=== PATIENT | female | born 1990 | race Caucasian/White ===

== ENCOUNTER → 2020-08-05 | Outpatient (REF) | payer OTHER ==
[~2020-08-05] MED LIST: IBUP600T26 PO; MAPA500T17 PO; MILK10SU PO
== END ==
LOC: M PLALAB 13:02
PROVIDERS: ATTEND Advanced Practice Midwife
DX: Z34.91 Encounter for supervision of normal pregnancy, unspecified, first trimester (principal); Z3A.00 Weeks of gestation of pregnancy not specified; Z53.9 Procedure and treatment not carried out, unspecified reason

== ENCOUNTER → 2020-09-16 | Outpatient (CLI) | payer OTHER | LOC: M WHC 10:09 | PROVIDERS: ATTEND Advanced Practice Midwife | DX: Z34.92 Encounter for supervision of normal pregnancy, unspecified, second trimester (principal) ==

== ENCOUNTER → 2020-11-06 | Outpatient (REF) | payer OTHER ==
[2020-11-06 17:35] LABS: HEMATOCRIT 37.1 % (36.0-47.0); HEMOGLOBIN 12.1 g/dl (12.0-15.5); MEAN CORPUSCULAR HEMOGLOBIN 29.4 pg (27.0-33.0); MEAN CORPUSCULAR HGB CONC 32.6 g/dl (32.0-36.5); PLATELET COUNT, AUTOMATED 441 10^3/uL (150-450); RED BLOOD COUNT 4.12 10^6/uL (4.00-5.40); WHITE BLOOD COUNT 16.6 10^3/uL (4.0-10.0)
== END ==
LOC: M PLALAB 14:04
PROVIDERS: ATTEND Specialist
DX: Z34.82 Encounter for supervision of other normal pregnancy, second trimester (principal)

== ENCOUNTER → 2020-11-12 | Outpatient (CLI) | payer OTHER | LOC: M WHC 13:52 | PROVIDERS: ATTEND Obstetrics & Gynecology | DX: Z34.92 Encounter for supervision of normal pregnancy, unspecified, second trimester (principal); Z3A.27 27 weeks gestation of pregnancy; Z53.9 Procedure and treatment not carried out, unspecified reason ==

== ENCOUNTER → 2020-11-19 | Outpatient (CLI) | payer OTHER ==
--- NOTE | 2020-11-19 16:12 | REP ---
INDICATION: 28 WEEK GESTATION,GROWTH COMPARISON: None. TECHNIQUE: Transabdominal obstetrical ultrasound with color Doppler evaluation. FINDINGS: Examination demonstrates a single live intrauterine in breech presentation. motion is identified by technologist. Placenta is noted anterior and grade 1 without evidence for placenta previa or abruption. Amniotic fluid volume is normal. Cervix measures 3.8 cm in length and appears closed.. Gestational age by EDC 28 weeks 2 days with KIRBY 02/09/2021. Gestational age by current measurements 28 weeks 2 days with KIRBY 02/10/2020. FHR equals 156 beats per minute. Amniotic fluid index: 14.8 cm (9.3-22.9) BPD: 7.3 cm at 29 weeks 1 day HC: 26.6 cm at 28 weeks 6 days AC: 23.2 cm at 27 weeks 4 days FL: 5.2 cm at 27 weeks 5 days HL: 4.8 cm at 28 weeks 2 days HC/AC: 1.15 Estimated weight 1132 grams (22ndpercentile). Umbilical artery 1 SD ratio: 3.18 (2.07-4.32) Umbilical artery 2 SD ratio: 3.39 (2.07-4.32) IMPRESSION: Single live intrauterine in breech presentation demonstrating appropriate estimated weight and growth. <Electronically signed by Ariel Owens > 11/19/20 2027
== END ==
LOC: M WHC 14:40
PROVIDERS: ATTEND Obstetrics & Gynecology
DX: Z36.89 Encounter for other specified antenatal screening (principal); Z3A.28 28 weeks gestation of pregnancy

== ENCOUNTER → 2020-12-17 | Outpatient (CLI) | payer OTHER ==
--- NOTE | 2020-12-18 06:15 | REP ---
INDICATION: GROWTH COMPARISON: 11/19/2020 TECHNIQUE: Transabdominal obstetrical ultrasound with color Doppler evaluation. FINDINGS: Examination demonstrates a single live intrauterine in cephalic presentation. motion is identified by technologist. Placenta is noted anterior and grade 2 without evidence for placenta previa or abruption. Amniotic fluid volume is normal. Cervix measures 2.9 cm in length and appears closed.. Gestational age by LMP and 1st U/S 32 weeks 2 days with KIRBY 02/09/2021. Gestational age by current measurements 31 weeks 4 days with KIRBY 02/14/2021. FHR equals 165 beats per minute. Estimated weight 1721 grams (13thpercentile). DENTON: 10.9 cm (8.5-24.3) IMPRESSION: Single live intrauterine in cephalic presentation demonstrating appropriate estimated weight. <Electronically signed by Ariel Owens > 12/18/20 0611
== END ==
LOC: M WHC 14:14
PROVIDERS: ATTEND Obstetrics & Gynecology
DX: Z34.93 Encounter for supervision of normal pregnancy, unspecified, third trimester (principal); Z3A.32 32 weeks gestation of pregnancy

== ENCOUNTER → 2021-01-21 | Outpatient (REF) | payer OTHER ==
[~2021-01-21] MED LIST changes: +IBUP-1114 PO; +MACR100C43 PO; +MAPA500T2 PO; +METO1TAB87 PO; +OXYC1TAB23 PO; +PRENTAB9 PO; +PROM12.56 PO; +REGL5TAB2 PO
== END ==
LOC: M SFHCWAGY 12:42 → M LAB REF 12:42
PROVIDERS: ATTEND Advanced Practice Midwife
DX: Z36.85 Encounter for antenatal screening for Streptococcus B (principal); Z3A.37 37 weeks gestation of pregnancy

== ENCOUNTER → 2021-01-28 | Outpatient (CLI) | payer OTHER ==
[~2021-01-28] MED LIST changes: +HYDR26CR PR; +TUMS750C5 PO
== END ==
LOC: M LABSMTC 10:01
PROVIDERS: ATTEND Specialist
DX: Z11.52 Encounter for screening for COVID-19 (principal)

== ENCOUNTER 2021-01-29 12:15 | Inpatient (IN) | payer OTHER ==
[2021-01-29] VITALS (18 sets, daily range): BP systolic 122–179; BP diastolic 65–100
[~2021-01-29] VITALS: Ht 165.1 cm; Wt 65.1 kg
[~2021-01-29 12:15] MED LIST changes: -HYDR26CR PR; -TUMS750C5 PO
[2021-01-29] MEDS ORDERED: PRENTAB9 PO (12:50)
[2021-01-29] MEDS ORDERED: TUMS750C5 PO (12:51)
[2021-01-29] MEDS ORDERED: HYDR26CR PR (12:54)
[2021-01-29] MEDS: miSOPROStol 50MCG 1/2 TABLET PO SCH ×2 (13:46→17:48)
--- NOTE | 2021-01-29 13:49 | HPEPDOC ---
Obstetrical History & Physical General Date of Admission January 29, 2021 at 12:15 History of Present Illness 30-year-old 3 para 2 presents at 38 weeks 3 days estimated gestational a ge by LMP confirmed for shortness ultrasound presents for induction of labor secondary to oligohydramnios and intrauterine growth restriction. Patient had a growth ultrasound today demonstrated a fetus at 2400 g less than 3rd percentile with amniotic fluid index of 3 cm. Her is unremarkable for two-vessel cord. She's been followed with serial growth ultrasounds. Chief Complaint: Induction of labor Information Provided By: Patient Age: 30 : 3 Term: 2 Livin Care Care: Good Care Dating Final EDC: February 09, 2021 Final EDC by: LMP EGA at Admission: 38 Past Medical History Past Obstetrical History : Date of Delivery: Jul 23, 2013 Gestation: 37 Type of Delivery: Spontaneous Vaginal Del. 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 Past Medical History Surgical History: Denies/None Family History Significant Family History: No pertinent family hx Social History Marital Status: Family situation: Spouse/partner home Psychosocial History: No pertinent psych hx * Smoker: non-smoker Alcohol: Denies Drugs: denies Allergies Coded Allergies: No Known Allergies (Unverified , 07/22/13) Medications Scheduled Metoprolol Tartrate (Metoprolol Tartrate) 25 Mg Tablet, 1 TAB PO DAILY No.137/Iron/Folic Acd ( Vitamin Tablet) 1 Each Tablet, 1 TAB PO DAILY Scheduled PRN Acetaminophen (Tylenol) 500 Mg Tab, 1,000 MG PO Q8HP PRN for PAIN Calcium Carbonate (Tums) 300 Mg Tab.chew, 1-2 TAB PO Q6HP PRN for INDIGESTION Hydrocortisone (Preparation H) 26 Gm Cream..g., 1 % PA Q6HP PRN for ITCHING Metoclopramide Hcl (Reglan) 5 Mg Tablet, 1 TAB PO Q8HP PRN for NAUSEA 1 hour prior to procedure Promethazine HCl (Promethazine HCl) 12.5 Mg Tablet, 12.5 MG PO Q6-8HP PRN for motion sickness Physical Examination Physical Examination GENERAL: Alert and oriented times three. BREAST: . ABDOMEN: Gravid and non-tender to touch. FETUS: Is vertex (VTX) by sterile vaginal examination (SVE), fetus is vertex (VTX) by Mark. HEART RATE: Regular rate and rhythm. LUNGS: Clear to auscultation (CTA). Vital Signs/I&O Vital Signs Date Time Temp Pulse Resp B/P (MAP) Pulse Ox O2 Delivery O2 Flow Rate FiO2 01/29/21 12:55 98.5 01/29/21 12:33 107 179/82 (114) 01/29/21 12:32 20 100 Room Air Laboratory Data 24H LABS Laboratory Tests 2 01/29/21 12:38: Serology Scanned Report Hepatitis B Testing Pertinent Laboratoy Data Blood Type: A+ RBC Antibody Screen: Negative HIV: Negative Hepatitis B: Negative Hepatitis C: Negative Rapid Plasma Reagin: Nonreactive Rubella: Immune Chlamydia/Gonorrhea: Negative Group B Streptococcus: Negative Glucose Tolerance Test: 109 Anatomy Ultrasound Placenta Location: Anterior Vaginal Examination Dilation: 1cm Effacement: 50% Station: -3 Cervical Position: Middle Presentation: Cephalic presentation Assessment Variability: Moderate Accelerations: Present Tocometer Frequency: irregular Assessment/Plan Assessment 30-year-old 3 para 2 at 38 weeks 3 days estimated gestational age with oligohydramnios and intrauterine growth restriction less than 3rd percentile Two-vessel umbilical cord cord Reassuring status Plan Admit and orient. 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 Diet: Regular. Group B Streptococcus (GBS) negative. Labs and intravenous (IV) per unit protocol. Counseled on Pitocin and induction of labor (IOL). Anticipate normal spontaneous delivery (). C-S as appropriate. Labor and Delivery Counseling Patient has been thoroughly counseled in regards to induction labor. I've discussed medications as well as procedures performed in labor and delivery. She has been verbally consented for emergency surgery blood products anesthesia and desires to proceed with induction. Plans to initiate her induction labor with 50 g oral misoprostol. JOSÉ LUIS MOODY MD. January 29, 2021 13:49
[2021-01-29 13:59] LABS: HEMATOCRIT 35.3 % (36.0-47.0); HEMOGLOBIN 11.7 g/dl (12.0-15.5); MEAN CORPUSCULAR HEMOGLOBIN 28.3 pg (27.0-33.0); MEAN CORPUSCULAR HGB CONC 33.1 g/dl (32.0-36.5); MEAN CORPUSCULAR VOLUME 85.5 fl (80.0-96.0); PLATELET COUNT, AUTOMATED 391 10^3/uL (150-450); RED BLOOD COUNT 4.13 10^6/uL (4.00-5.40); WHITE BLOOD COUNT 12.1 10^3/uL (4.0-10.0)
[2021-01-29 15:01] LABS: TOTAL PROTEIN,RANDOM URINE 32.1 MG/DL (0.0-12.0)
[2021-01-29 15:03] LABS: ALT/SGPT 12 U/L (12-78); BILIRUBIN,TOTAL 0.3 MG/DL (0.2-1.0); CREATININE FOR GFR 0.62 MG/DL (0.55-1.30); GLOMERULAR FILTRATION RATE > 60.0 (>60); LDH LACTATE DEHYDROGENASE 178 U/L (84-246); URIC ACID 4.1 MG/DL (2.6-6.0)
[2021-01-29] MEDS ORDERED: OXYTOCIN 30 UNITS IN 0.9% NaCl 500ML IV BAG (J2590) As Ordered ONE (20:32)
[2021-01-29] MEDS ORDERED: OXYTOCIN DRIP 30 UNITS in IV 1 EA IV SCH (21:25)
[2021-01-29] MEDS ORDERED: DIBUCAINE 1% OINTMENT 30GM TOP PRN (21:25)
[2021-01-29] MEDS ORDERED: METHYLERGONOVINE MALEATE 0.2 MG TAB PO PRN (21:25)
[2021-01-29] MEDS ORDERED: ACETAMINOPHEN TAB 650MG DOSE (2X325MG) PO PRN (21:25)
[2021-01-29] MEDS ORDERED: RHOGAM 300 MCG (1500 IU) INJ (J2790) IM SCH (21:25)
[2021-01-29] MEDS ORDERED: MEASLES,MUMPS,RUBELLA VACCINE INJ (MMR-II) (90707) SC SCH (21:25)
[2021-01-29] MEDS ORDERED: ANUSOL HC CREAM 30GM TOP PRN (21:25)
[2021-01-29] MEDS ORDERED: IBUPROFEN 600MG TAB PO PRN (21:25)
[2021-01-29] MEDS ORDERED: MOM 30ML SUSPENSION UDC PO PRN (21:25)
[2021-01-29] MEDS ORDERED: DOCUSATE SODIUM 100MG CAPSULE PO PRN (21:25)
--- NOTE | 2021-01-29 21:26 | DNPDOC ---
[facility] Delivery Note Delivery Note DATE OF DELIVERY: 01/29/2021 TIME OF : 2056 GENDER: Female APGARS: 8 and 9 WEIGHT: 2540 g or 5 lbs. 10 oz. LACERATIONS: none ANESTHESIA: none ESTIMATED BLOOD LOSS: 200 ml COUNTS: 5 laparotomy sponges accounted for prior to after delivery. DELIVERY NOTE: On 01/29/2021 at 2056 Mrs. Mann is a 22-year-old 3 para 3 had a spontaneous vaginal delivery of a liveborn female infant Apgars 8 and 9 weight was 2540 g 5 lbs. 10 oz. Head was delivered occiput anterior (OA), followed by delivery of the shoulders and corpus. Infant was handed to mom with a good cry. Cord was clamped times two and was cut by support person under my direction. Placenta was then drained and delivered grossly intact. A premixed bag of 500 mL of normal saline with 30 units of Pitocin was then bolused along with uterine massage until the uterus was firm. On inspection, cervix, vagina, perineum was grossly intact and hemostatic. Mom and baby in recovery on stable condition. The couples decided to name the daughter Milly. JOSÉ LUIS MOODY MD. January 29, 2021 21:26
[2021-01-29] MEDS: IBUPROFEN 800 MG TAB PO PRN (21:33)
[2021-01-30] MEDS: ACETAMINOPHEN 500 MG TAB PO PRN ×3 (01:00→16:42)
[2021-01-30 06:00] VITALS: BP 132/80
[2021-01-30] MEDS: PRENATAL VITAMINS CHEWABLE TABLET PO SCH (07:30)
--- NOTE | 2021-01-30 07:45 | IPNPDOC ---
Progress Note Date of Service: January 30, 2021 Day#: 1 Progress Note SUBJECT: Doing well without complaints. Ambulating, voiding and pain is well- controlled. Reports minimal lochia. OBJECTIVE: VITAL SIGNS: Within normal limits, afebrile. Alert and oriented times three. Abdomen: Fundus firm at U-2. Soft, NTTP. Ext: neg calf tenderness. ASSESSMENT: day #1 status post . Recovering in stable condition. PLAN: 1. Continue routine care 2. Discharge plans for tomorrow VS, I&O, 24H, Fishbone Vital Signs/I&O Vital Signs Date Time Temp Pulse Resp B/P (MAP) Pulse Ox O2 Delivery O2 Flow Rate FiO2 01/30/21 06:00 99.4 89 18 132/80 (97) 99 Room Air I&O- Last 24 Hours up to 6 AM 01/30/21 06:00 Intake Total 840 ml Output Total 900 ml Balance -60 ml Laboratory Data 24H LABS Laboratory Tests 2 01/29/21 12:38: Serology Scanned Report Hepatitis B Testing 01/29/21 13:42: Nucleated Red Blood Cells % (auto) 0.0, Glomerular Filtration Rate > 60.0, Uric Acid 4.1, Total Bilirubin 0.3, Aspartate Amino Transf (AST/SGOT) 15, Alanine Aminotransferase (ALT/SGPT) 12, Lactate Dehydrogenase 178, Syphilis Serology NONREACTIVE 01/29/21 13:54: Urine Random Creatinine 182.0, Urine Random Total Protein 32.1H CBC/BMP Laboratory Tests 01/29/21 13:42 JOSÉ LUIS MOODY MD. January 30, 2021 07:45
[2021-01-30] MEDS: IBUPROFEN 800 MG TAB PO PRN ×2 (12:44→20:18)
[2021-01-30 18:00] VITALS: BP 122/83
[2021-01-31 06:23] VITALS: BP 114/78
[2021-01-31] MEDS: ACETAMINOPHEN 500 MG TAB PO PRN (06:26)
[2021-01-31] MEDS: PRENATAL VITAMINS CHEWABLE TABLET PO SCH (09:15)
== END 2021-01-31 10:55 | disposition home or self-care (01) | DRG 560 ==
LOC: M LDI 12:15 → M OBS 23:00
PROVIDERS: ADMIT Obstetrics & Gynecology; ATTEND Obstetrics & Gynecology
PROC: 10E0XZZ Delivery of Products of Conception, External Approach (ICD-10-PCS; principal; 2021-01-29)
PROC: 3E0P7GC Introduction of Other Therapeutic Substance into Female Reproductive, Via Natural or Artificial Opening (ICD-10-PCS; 2021-01-29)
DX: O41.03X0 Oligohydramnios, third trimester, not applicable or unspecified (principal); Z3A.38 38 weeks gestation of pregnancy; Z37.0 Single live birth; O36.5930 Maternal care for other known or suspected poor fetal growth, third trimester, not applicable or unspecified; O36.8930 Maternal care for other specified fetal problems, third trimester, not applicable or unspecified; O69.89X0 Labor and delivery complicated by other cord complications, not applicable or unspecified

== ENCOUNTER → 2021-01-29 | Outpatient (CLI) | payer OTHER ==
--- NOTE | 2021-01-29 12:39 | REP ---
INDICATION: 2 CORD/GROWTH/DENTON. COMPARISON: 01/08/2021. TECHNIQUE: Real-time sonographic evaluation of the gravid uterus performed. FINDINGS: Estimated gestational age is38 weeks 3 days, EDC 02/09/2021. Today's measurements indicate less than expected growth. Presentation: Cephalic Placenta anterior, grade 2, without evidence of placenta previa. heart rate is recorded at 147 beats per minute. Amniotic fluid is subjectively oligohydramnios. DENTON 3.0, normal range 7.3-23.3.. Closed cervical length is measured at 3.1 cm. Biometry chart: BPD: 89 mm, 36 weeks 0 days, 17th percentile. HC: 324 mm, 36 weeks 4 days, 20th percentile AC: 303 mm, 34 weeks 1 days, less than 5th percentile Femur length: 67 mm, 34 weeks 3 days, less than 5th percentile HC to AC ratio: 1.07, normal range 0.90-1.09. Estimated weight: 2496g, less than 3rd percentile. IMPRESSION: Viable single intrauterine gestation as above. Suboptimal growth. Oligohydramnios. <Electronically signed by Ezra Kent > 01/29/21 3348
== END ==
LOC: M WHC 11:27
PROVIDERS: ATTEND Advanced Practice Midwife
DX: O43.103 Malformation of placenta, unspecified, third trimester (principal)

== ENCOUNTER → 2021-06-24 | Outpatient (REF) | payer OTHER ==
[~2021-06-24] MED LIST changes: +HYDR26CR PR; +TUMS750C5 PO
== END ==
LOC: M SFHCWAGY 14:00
PROVIDERS: ATTEND Obstetrics & Gynecology
DX: Z12.4 Encounter for screening for malignant neoplasm of cervix (principal); Z01.419 Encounter for gynecological examination (general) (routine) without abnormal findings; Z77.9 Other contact with and (suspected) exposures hazardous to health

== ENCOUNTER → 2021-09-10 | Outpatient (REF) | payer OTHER ==
[2021-09-10 16:59] LABS: APPEARANCE, URINE CLOUDY (CLEAR); BACTERIA, URINE AUTO NEGATIVE (NEGATIVE); BILIRUBIN, URINE AUTO NEGATIVE (NEGATIVE); BLOOD, URINE BLOOD 3+ (NEGATIVE); COLOR, URINE YELLOW (YELLOW); GLUCOSE, URINE (UA) AUTO NEGATIVE (NEGATIVE); KETONE, URINE AUTO NEGATIVE (NEGATIVE); LEUKOCYTE ESTERASE, URINE AUTO 3+ (NEGATIVE); MUCUS, URINE SMALL (NEGATIVE); NITRITE, URINE AUTO POSITIVE (NEGATIVE); PROTEIN, URINE AUTO 2+ mg/dL (NEGATIVE); RBC, URINE AUTO TNTC /HPF (0-3); SPECIFIC GRAVITY URINE AUTO 1.023 (1.002-1.035); SQUAMOUS EPITHELIAL CELL UR AU 6 /HPF (0-6); UROBILINOGEN, URINE AUTO 0.2 mg/dL (0.0-2.0); WBC, URINE AUTO TNTC /HPF (0-3)
== END ==
LOC: M LAB REF 16:24
PROVIDERS: ATTEND Physician Assistant
DX: N39.0 Urinary tract infection, site not specified (principal)

== ENCOUNTER → 2023-04-25 | Outpatient (CLI) | payer MEDICAID ==
[2023-04-25 09:55] LABS: BASO # 0.1 10^3/uL (0.0-0.2); BASO % 1.4 % (0.0-1.0); EOS # 0.4 10^3/uL (0.0-0.5); EOS % 4.8 % (0.0-3.0); HEMOGLOBIN 13.4 g/dl (12.0-15.5); LYMPH # 2.5 10^3/uL (1.5-5.0); LYMPH % 30.3 % (24.0-44.0); MEAN CORPUSCULAR HEMOGLOBIN 29.6 pg (27.0-33.0); MEAN CORPUSCULAR HGB CONC 33.5 g/dl (32.0-36.5); MEAN CORPUSCULAR VOLUME 88.5 fl (80.0-96.0); MONO # 0.8 10^3/uL (0.0-0.8); MONO % 10.2 % (2.0-8.0); NEUTROPHILS # 4.3 10^3/uL (1.5-8.5); NEUTROPHILS % 53.1 % (36.0-66.0); PLATELET COUNT, AUTOMATED 382 10^3/uL (150-450); RED BLOOD COUNT 4.52 10^6/uL (4.00-5.40); WHITE BLOOD COUNT 8.1 10^3/uL (4.0-10.0)
[2023-04-25 10:21] LABS: HEMOGLOBIN A1c 4.8 % (4.0-6.0)
[2023-04-25 10:27] LABS: ALBUMIN 4.3 G/DL (3.2-5.2); ALKALINE PHOSPHATASE 52 U/L (46-116); ALT/SGPT 13 U/L (7.0-40); AST/SGOT 11 U/L (<34); BILIRUBIN,TOTAL 0.7 MG/DL (0.3-1.2); BLOOD UREA NITROGEN 6 MG/DL (9-23); CALCIUM LEVEL 9.4 MG/DL (8.5-10.1); CARBON DIOXIDE LEVEL 27 MMOL/L (20-31); CHLORIDE LEVEL 105 MMOL/L (98-107); CHOLESTEROL LEVEL 143 MG/DL (<200); CHOLESTEROL RISK RATIO 2.75 (<5); CREATININE FOR GFR 0.78 MG/DL (0.55-1.30); GLOMERULAR FILTRATION RATE > 60.0 (>60); GLUCOSE, FASTING 88 MG/DL (60-100); HDL CHOLESTEROL 51.9 MG/DL (>40); LDL CHOLESTEROL 76.7 MG/DL (<100); NON-HDL-C 91.1 MG/DL; POTASSIUM SERUM 3.9 MMOL/L (3.5-5.1); SODIUM LEVEL 141 MMOL/L (136-145); TOTAL PROTEIN 7.2 G/DL (5.7-8.2); TRIGLYCERIDES LEVEL 72 MG/DL (<150)
[2023-04-25 10:29] LABS: THYROID STIMULATING HORMONE 2.064 uIU/ML (0.55-4.78); TOTAL 25(OH) VITAMIN D 20.9 NG/ML (20.0-100.0)
== END ==
LOC: M RAD 09:20
PROVIDERS: ATTEND Physician Assistant
DX: S99.921A Unspecified injury of right foot, initial encounter (principal); W18.30XA Fall on same level, unspecified, initial encounter; Y92.009 Unspecified place in unspecified non-institutional (private) residence as the place of occurrence of the external cause

== ENCOUNTER → 2024-10-05 | Outpatient (CLI) | payer OTHER | LOC: M RAD 11:52 | PROVIDERS: ATTEND Physician Assistant | DX: M54.50 Low back pain, unspecified (principal); M47.816 Spondylosis without myelopathy or radiculopathy, lumbar region; M41.86 Other forms of scoliosis, lumbar region ==

== ENCOUNTER → 2024-11-07 | Outpatient (CLI) | payer OTHER | LOC: M SOG 07:53 | PROVIDERS: ATTEND Physician Assistant | DX: M25.562 Pain in left knee (principal) ==

== ENCOUNTER → 2025-01-16 | Outpatient (RCR) | payer OTHER | LOC: M PT 12-24 09:42 | PROVIDERS: ATTEND Physician Assistant | DX: M25.562 Pain in left knee (principal) ==